=== PATIENT | female | born 1980 | race Hispanic/Latino ===

== ENCOUNTER 2019-12-02 13:29 | Emergency (ER) | payer SELFPAY ==
[2019-12-02] MEDS ORDERED: DIAZEPAM 5 MG/ML 2 ML SYG ONE (13:56)
[2019-12-02] MEDS ORDERED: KETOROLAC TROMETHAMINE 30MG/ML ONE (13:56)
== END 2019-12-02 16:08 | disposition home or self-care (01) ==
LOC: EDH 13:29
DX: S16.1XXA Strain of muscle, fascia and tendon at neck level, initial encounter (principal); S39.012A Strain of muscle, fascia and tendon of lower back, initial encounter; Z98.890 Other specified postprocedural states; V49.49XA Driver injured in collision with other motor vehicles in traffic accident, initial encounter; Y93.89 Activity, other specified; Y92.488 Other paved roadways as the place of occurrence of the external cause; Y99.8 Other external cause status
CPT/HCPCS: 70450; 72125; 72170; 96374; 96375; 99285; J1885; J3360